=== PATIENT | female | born 1980 | race Caucasian/White ===

== ENCOUNTER → 2019-05-23 | Outpatient (CLI) | payer OTHER ==
[~2019-05-23] MED LIST: ACET500 PO; AMLO5 PO; AMOCLA875 PO; AMOX500 PO; ASCO500 PO; ATOR20 PO; AZIT250 PO; Antivert25 MG PO; Augmentin 875-1 EACH PO; B Complex #11 EACH PO; BLACK SEED OIL PO; BUPR150ER PO; BUPR75 PO; BUSP15 PO; Bactrim Ds Tab1 EACH PO; Bupropion Xl150 MG PO; Buspirone HCl30 MG PO; C-10001000 M1 PO; CARI350 PO; CENTRUM COMPLE1 EACH PO; CEPH500 PO; CHOL10002 PO; CIPR500 PO; CITA20 PO; CLON1 PO; CODACE30 PO; CODGUAEL PO; CYCL10 PO; Cleocin HCl300 MG PO; Clonazepam1 MG PO; DOCU100 PO; EPIPEN 2-P0.3 MG/0.3 IM; ESOM20 PO; ESTNORT PO; FAMO40 PO; GUAIFENESIN1200 MG PO; HYDACE5 PO; HYDACE5325 PO; Hair, Skin & N1 EACH PO; IBUP200 PO; IBUP800 PO; Inositol500 MG PO; MELO7.5 PO; METF500 PO; NAPR500 PO; NAPR550 PO; Naprosyn500 MG PO; Norco 10-325 T1 EACH PO; Norco 5-325 Ta1 EACH PO; OMEP20ER PO; OMEPRAZOLE MAGN20 MG PO; OXYACE5T PO; PARO20 PO; PARO30 PO; POTASSIUM GLUC500 MG PO; POTASSIUM99 MG PO; PRESTIQ; PROM25 PO; PSEU120ER PO; PYRI100 PO; Pepcid40 MG PO; Percocet 5-3251 EACH PO; RXCEPH500 PO; RXCODGUASY PO; RXCYCL10 PO; RXHYDACE PO; RXNAPNA550 PO; RXTRAM50 PO; Robaxin500 MG PO; SUCR1 PO; SULTRIDS PO; TRAM50 PO; Ultram50 MG PO; VITAMIN B12-FO1 EACH PO; VITAMIN D32000 UNIT PO; Vitamin D2000 UNIT PO; ZESTORETIC 20-121 EA; ZESTORETIC 20-121 EA PO
[2019-05-28 16:07] LABS: HPV 16 Negative (Negative); HPV 18 Negative (Negative); HPV OTHER HR TYPES Negative (Negative)
== END | disposition home or self-care (01) ==
LOC: LAB SHORT 11:30 → LAB 11:30
PROVIDERS: Obstetrics & Gynecology
DX: Z01.419 Encounter for gynecological examination (general) (routine) without abnormal findings (principal)
CPT/HCPCS: 87624; G0123

== ENCOUNTER 2019-07-01 05:44 | Day surgery (SDC) | payer OTHER ==
[~2019-07-01] VITALS: Ht 180.3 cm; Wt 111.6 kg
[~2019-07-01 05:44] MED LIST changes: -BLACK SEED OIL PO; -DOCU100 PO
--- NOTE | 2019-07-01 06:40 | NUR ---
Ambulatory in Day Surgery History, Chart, Medications and Allergies reviewed before start of procedure.Lungs clear T/O to Auscultation. Patient reports completing Chlorhexadine shower X2 prior to admission to hospital.Surgical site prepped with 2% Chlorhexidine cloth wipe.HCG NEGATIVE.
--- NOTE | 2019-07-01 12:48 | NUR ---
OBTAINED PERMISSION ON 07/01/19 THE RN INTERNSHIP OBTAINED VERBAL PERMISSION FROM THE PATIENT TO CARE FOR HER ON 07/02/19.
[2019-07-01] MEDS ORDERED: BLACK SEED OIL PO (13:03)
--- NOTE | 2019-07-01 16:22 | NUR ---
SHIFT SUMMARY S/P LAVH AND PT DOING WELL. POST OP VSS. 1 NORCO + TORADOL + KPAD TO ABD FOR PAIN MANAGEMENT. IVF INFUSING PER ORDERS. CARLOS REG DIET WITH NO COMPLAINTS OF N/V. LAP SITES TO ABD ARE CDI. FARR PATENT DRAINING YELLOW URINE. SCANT VAGINAL BLEEDING TO ALICE PAD. PT AMBULATED HALLWAY WITH MININAL STANDBY ASSIST. USES CALL LIGHT APPROPRIATELY.
--- NOTE | 2019-07-02 05:41 | NUR ---
SHIFT SUMMARY: MARLY RESTED INTERMITTENTLY DURING THE NIGHT. SHE IS ABLE TO MAKE HER NEEDS KNOWN. SHE IS POD1 TODAY FOR A LAP ASSISTED VAGINAL HYSTERECTOMY. FARR IN PLACE DRAINING CLEAR, YELLOW URINE. LAP SITES X 3 ON ABDOMEN DRY AND INTACT. SHE REPORTS TOLERABLE PAIN CONTROL WITH THE USE OF TORADOL AND NORCO. IV TO RIGHT HAND PATENT. SHE IS TOLERATING PO INTAKE WELL, DENIES ANY N/V. SHE IS INDEPENDENT TO THE BATHROOM AND HAS WALKED THE SMITH X 2 THIS SHIFT. SHE IS LYING COMFORTABLY IN BED WITH HER CALL LIGHT IN REACH. SHE DOES USE HER CALL LIGHT APPROPRIATELY.
--- NOTE | 2019-07-02 06:03 | NUR ---
FARR CATHETER REMOVED AT 0600.
[2019-07-02 06:17] LABS: BASOPHILS ABSOLUTE AUTO 0.02 K/mm3 (0.00-0.23); BASOPHILS PERCENT AUTO 0 % (0-2); EOSINOPHILS PERCENT AUTO 0 % (0-6); Hematocrit 31.4 % (33.0-51.0); IMMATURE GRAN ABSOLUTE AUTO 0.18 K/mm3 (0.00-0.10); IMMATURE GRAN PERCENT AUTO 1 % (0-1); LYMPHOCYTES PERCENT AUTO 8 % (21-46); MONOCYTES PERCENT AUTO 5 % (4-13); Mean Corpuscular HGB 28.5 pg (26.0-34.0); Mean Corpuscular HGB Conc 31.8 g/dL (31.5-36.5); Mean Corpuscular Volume 90 fL (80-100); Mean Platelet Volume 8.1 fL (9.1-12.4); NEUTROPHILS PERCENT AUTO 86 % (41-73); Platelet Count 297 K/mm3 (150-400); RDW Coefficient Variation 14.1 % (11.7-14.2); RDW Standard Deviation 45.4 fL (35.1-46.3); Red Blood Cell Count 3.51 M/mm3 (3.80-5.20)
[2019-07-02] MEDS ORDERED: Norco 5-325 Ta1 EACH PO (09:59)
[2019-07-02] MEDS ORDERED: DOCU100 PO (09:59)
[2019-07-02] MEDS ORDERED: IBUP800 PO (10:00)
--- NOTE | 2019-07-02 10:26 | NUR ---
DISCHARGE PT EDUCATED ON AND RECEIVED PRINTED DC INSTRUCTIONS AND VERB AN UNDERSTANDING. HARD RX FOR NORCO + IBUPROFEN + COLACE GIVEN TO PT. MEDS FAXED OVER TO [facility] IN [place]. IV DC'D. PT VOIDING SPONTANEOUSLY. PT LEFT WITH ALL PERSONAL BELONGINGS.
== END 2019-07-02 10:32 | disposition home or self-care (01) ==
LOC: ORSCMMR 05:44 → ORD 07:30 → ORSCMMR 07:30 → SURS 12:04 → ORSCMMR 07-02 10:32
PROVIDERS: Obstetrics & Gynecology
PROC: 0UT7FZZ Resection of Bilateral Fallopian Tubes, Via Natural or Artificial Opening With Percutaneous Endoscopic Assistance (ICD-10-PCS; principal; 2019-07-01 07:30)
PROC: 0UT9FZZ Resection of Uterus, Via Natural or Artificial Opening With Percutaneous Endoscopic Assistance (ICD-10-PCS; principal; 2019-07-01 07:30)
DX: N92.0 Excessive and frequent menstruation with regular cycle (principal); E28.2 Polycystic ovarian syndrome; R10.2 Pelvic and perineal pain; N94.6 Dysmenorrhea, unspecified; I10 Essential (primary) hypertension; E78.5 Hyperlipidemia, unspecified; G47.33 Obstructive sleep apnea (adult) (pediatric); K21.9 Gastro-esophageal reflux disease without esophagitis; F17.210 Nicotine dependence, cigarettes, uncomplicated; Z79.899 Other long term (current) drug therapy
CPT/HCPCS: 36415; 82947; 85025; 88307; A9270; A9270-GY; J0690; J1100; J1885; J2250; J2405; J2704; J2710; J3010; J7120

== ENCOUNTER → 2020-02-12 | Outpatient (CLI) | payer OTHER ==
[~2020-02-12] MED LIST changes: +BLACK SEED OIL PO; +DOCU100 PO
== END | disposition home or self-care (01) ==
LOC: LAB SHORT 15:20 → LAB 15:20
DX: R21 Rash and other nonspecific skin eruption (principal)
CPT/HCPCS: 87252; 87254

== ENCOUNTER 2021-05-17 18:59 | Emergency (ER) | payer OTHER ==
[~2021-05-17] VITALS: Ht 180.3 cm; Wt 108.9 kg
[~2021-05-17 18:59] MED LIST changes: +LIPITOR80 MG PO; +PAXIL40 M1 PO
[2021-05-18] MEDS ORDERED: IBUP600 PO (01:59)
== END 2021-05-18 02:05 | disposition home or self-care (01) ==
LOC: ER 18:59
DX: S32.10XA Unspecified fracture of sacrum, initial encounter for closed fracture (principal); I10 Essential (primary) hypertension; E11.9 Type 2 diabetes mellitus without complications; Z88.1 Allergy status to other antibiotic agents; Z88.2 Allergy status to sulfonamides; Z79.899 Other long term (current) drug therapy; W01.0XXA Fall on same level from slipping, tripping and stumbling without subsequent striking against object, initial encounter
CPT/HCPCS: 72100; 72192; 72220; 99284-25; A9270

== ENCOUNTER 2021-06-02 13:39 | Emergency (ER) | payer OTHER ==
[~2021-06-02] VITALS: Ht 180.3 cm; Wt 108.9 kg
[~2021-06-02 13:39] MED LIST changes: +IBUP600 PO
== END 2021-06-02 19:00 | disposition home or self-care (01) ==
LOC: ER 13:39
DX: S32.10XA Unspecified fracture of sacrum, initial encounter for closed fracture (principal); R20.2 Paresthesia of skin; W10.9XXA Fall (on) (from) unspecified stairs and steps, initial encounter; Z88.0 Allergy status to penicillin; Z88.1 Allergy status to other antibiotic agents; Z88.7 Allergy status to serum and vaccine; Z88.2 Allergy status to sulfonamides; Z91.040 Latex allergy status; Z88.8 Allergy status to other drugs, medicaments and biological substances; Z79.899 Other long term (current) drug therapy; Z79.84 Long term (current) use of oral hypoglycemic drugs; I10 Essential (primary) hypertension; E11.9 Type 2 diabetes mellitus without complications; F17.210 Nicotine dependence, cigarettes, uncomplicated
CPT/HCPCS: 72148; 72220; 99284-25

== ENCOUNTER 2021-08-03 15:08 | Emergency (ER) | payer OTHER ==
[~2021-08-03] VITALS: Ht 180.3 cm; Wt 104.3 kg
[2021-08-03] MEDS ORDERED: Voltaren100 GM TOP (19:57)
[2021-08-03] MEDS ORDERED: OXAYDO5 M1 PO ×2 (19:57→20:00)
[2021-08-03] MEDS ORDERED: NAPR500 PO (19:57)
[2021-08-03] MEDS ORDERED: GABA300 PO (19:57)
[2021-08-03] MEDS ORDERED: METPRE4DP PO (19:57)
== END 2021-08-03 20:34 | disposition home or self-care (01) ==
LOC: ER 15:08
DX: G62.89 Other specified polyneuropathies (principal); S32.10XD Unspecified fracture of sacrum, subsequent encounter for fracture with routine healing; I10 Essential (primary) hypertension; E11.9 Type 2 diabetes mellitus without complications; F17.210 Nicotine dependence, cigarettes, uncomplicated; Z79.899 Other long term (current) drug therapy; Z88.0 Allergy status to penicillin; Z88.2 Allergy status to sulfonamides; X58.XXXD Exposure to other specified factors, subsequent encounter
CPT/HCPCS: 51798; 96372; 99284-25; A9270; J1885; J7512

== ENCOUNTER → 2022-06-14 | Outpatient (CLI) | payer OTHER ==
[~2022-06-14] MED LIST changes: +GABA300 PO; +METPRE4DP PO; +OXAYDO5 M1 PO; +Voltaren100 GM TOP
[2022-06-16 14:10] LABS: CHLAMYDIA BY NAA Negative (Negative); GONOCOCCUS BY NAA Negative (Negative); TRICH VAG BY NAA Negative (Negative)
== END | disposition home or self-care (01) ==
LOC: LAB 14:04 → LAB SHORT 14:04
PROVIDERS: Family Medicine
DX: Z11.59 Encounter for screening for other viral diseases (principal)
CPT/HCPCS: 87491; 87591; 87661

== ENCOUNTER → 2022-10-06 | Outpatient (CLI) | payer OTHER | LOC: LAB 18:30 → LAB SHORT 18:30 | DX: N39.0 Urinary tract infection, site not specified (principal) | CPT/HCPCS: 87077; 87086; 87186 ==

== ENCOUNTER 2022-10-21 21:05 | Emergency (ER) | payer OTHER ==
[~2022-10-21] VITALS: Ht 180.3 cm; Wt 104.3 kg
[2022-10-22 00:45] VITALS: BP 148/82
== END 2022-10-22 00:51 | disposition home or self-care (01) ==
LOC: ER 21:05
DX: M79.652 Pain in left thigh (principal); I10 Essential (primary) hypertension; E11.9 Type 2 diabetes mellitus without complications; F17.210 Nicotine dependence, cigarettes, uncomplicated; Z88.0 Allergy status to penicillin; Z88.1 Allergy status to other antibiotic agents; Z88.2 Allergy status to sulfonamides; Z88.7 Allergy status to serum and vaccine; Z91.040 Latex allergy status; Z91.018 Allergy to other foods; Z79.84 Long term (current) use of oral hypoglycemic drugs; Z79.899 Other long term (current) drug therapy
CPT/HCPCS: 99283

== ENCOUNTER → 2022-12-14 | Outpatient (CLI) | payer OTHER ==
[2022-12-15 10:09] LABS: HIV AB/P24 AG SCREEN Non Reactive (Non Reactive)
[2022-12-15 12:01] LABS: Candida species (DNA Probe) Negative (NEGATIVE); G. vaginalis (DNA Probe) Positive (NEGATIVE); T. vaginalis (DNA Probe) Negative (NEGATIVE)
[2022-12-17 00:09] LABS: CHLAMYDIA BY NAA Negative (Negative); GONOCOCCUS BY NAA Negative (Negative); TRICH VAG BY NAA Negative (Negative)
== END ==
LOC: LAB 14:05 → LAB SHORT 14:05
PROVIDERS: Family Medicine
DX: Z11.3 Encounter for screening for infections with a predominantly sexual mode of transmission (principal)
CPT/HCPCS: 86592; 86695; 86696; 86803; 87389; 87480; 87491; 87510; 87591; 87660; 87661

== ENCOUNTER 2023-01-31 23:05 | Emergency (ER) | payer OTHER ==
[~2023-01-31] VITALS: Ht 170.2 cm; Wt 97.5 kg
[2023-01-31 23:12] VITALS: BP 144/94
[2023-01-31] MEDS ORDERED: Cleocin HCl150 MG PO (23:32)
[2023-01-31] MEDS ORDERED: Vibramycin100 MG PO (23:32)
== END 2023-01-31 23:52 | disposition home or self-care (01) ==
LOC: ER 23:05
DX: S61.051A Open bite of right thumb without damage to nail, initial encounter (principal); S61.251A Open bite of left index finger without damage to nail, initial encounter; W55.01XA Bitten by cat, initial encounter; Z23 Encounter for immunization; Z88.0 Allergy status to penicillin; Z88.1 Allergy status to other antibiotic agents; Z88.2 Allergy status to sulfonamides; Z88.7 Allergy status to serum and vaccine; Z91.040 Latex allergy status; Z79.899 Other long term (current) drug therapy; Z79.84 Long term (current) use of oral hypoglycemic drugs; Z79.52 Long term (current) use of systemic steroids; I10 Essential (primary) hypertension; E11.9 Type 2 diabetes mellitus without complications; F17.210 Nicotine dependence, cigarettes, uncomplicated
CPT/HCPCS: 90471; 90714; 90715; 99283-25; A9270

== ENCOUNTER → 2023-09-12 | Outpatient (CLI) | payer OTHER ==
[~2023-09-12] MED LIST changes: +Cleocin HCl150 MG PO; +Vibramycin100 MG PO
[2023-09-12 18:44] LABS: Creatinine, Urine Random 86.5 mg/dL (27.00-270.00); Microalb/Creat Ratio UR, Rand 6.578 mg/g (0.000-30.000); Microalbumin, Random Urine 5.69 mg/L (0.000-20.000)
[2023-09-12 18:54] LABS: Albumin/Globulin Ratio 1.3 (0.8-1.8); Bilirubin, Total 0.2 mg/dL (0.1-1.0); Bun/Creatinine Ratio 16.7 (12.0-20.0); Calcium, Blood 9.7 mg/dL (8.5-10.1); Creatinine, Blood 0.9 mg/dL (0.40-1.00); Globulin, Blood 3.1 g/dL (2.2-4.0); Total Protein, Blood 7.1 g/dL (6.4-8.2)
[2023-09-15 15:16] LABS: CHROMOGRANIN IN SERUM 391 ng/mL (0-187)
== END | disposition home or self-care (01) ==
LOC: LAB 15:00 → LAB SHORT 15:00
PROVIDERS: Family Medicine
DX: H53.2 Diplopia (principal); H53.9 Unspecified visual disturbance; R09.89 Other specified symptoms and signs involving the circulatory and respiratory systems; R23.2 Flushing; R51.9 Headache, unspecified; R82.994 Hypercalciuria
CPT/HCPCS: 80053; 82043; 82306; 82570; 82652; 86316

== ENCOUNTER 2024-02-21 07:25 | Day surgery (SDC) | payer OTHER | END 2024-02-21 22:54 | disposition home or self-care (01) | LOC: MHTC 07:25 → CT 07:25 | DX: I25.10 Atherosclerotic heart disease of native coronary artery without angina pectoris (principal); Z88.8 Allergy status to other drugs, medicaments and biological substances; Z91.040 Latex allergy status | CPT/HCPCS: 75574; Q9967 ==

== ENCOUNTER → 2024-09-24 | Outpatient (CLI) | payer OTHER | END | disposition home or self-care (01) | LOC: LAB 16:55 → LAB SHORT 16:55 | DX: N39.0 Urinary tract infection, site not specified (principal) | CPT/HCPCS: 87077; 87086; 87186 ==

== ENCOUNTER 2025-01-28 18:14 | Emergency (ER) | payer OTHER ==
[~2025-01-28] VITALS: Ht 180.3 cm; Wt 108.9 kg
[2025-01-28] MEDS ORDERED: OXYC10ER PO (20:51)
[2025-01-28] MEDS ORDERED: Robaxin750 MG PO (20:52)
[2025-01-28] MEDS ORDERED: ONDA4ODT MM (20:53)
[2025-01-28 21:12] LABS: BASOPHILS ABSOLUTE AUTO 0.06 K/mm3 (0.00-0.23); BASOPHILS PERCENT AUTO 1 % (0-2); EOSINOPHILS ABSOLUTE AUTO 0.37 K/mm3 (0.00-0.68); EOSINOPHILS PERCENT AUTO 4 % (0-6); Hematocrit 42.8 % (33.0-51.0); Hemoglobin 14.0 g/dL (11.5-16.0); IMMATURE GRAN ABSOLUTE AUTO 0.14 K/mm3 (0.00-0.10); IMMATURE GRAN PERCENT AUTO 1 % (0-1); LYMPHOCYTES ABSOLUTE AUTO 3.17 K/mm3 (0.84-5.20); LYMPHOCYTES PERCENT AUTO 31 % (21-46); MONOCYTES ABSOLUTE AUTO 0.92 K/mm3 (0.16-1.47); MONOCYTES PERCENT AUTO 9 % (4-13); Mean Corpuscular HGB Conc 32.7 g/dL (31.5-36.5); Mean Corpuscular Volume 86 fL (80-100); NEUTROPHILS ABSOLUTE AUTO 5.62 K/mm3 (1.96-9.15); NEUTROPHILS PERCENT AUTO 55 % (41-73); NRBC ABSOLUTE 0.00 K/mm3 (0.00-0.02); NRBC Auto 0.0 /100 WBC (0.0-0.2); Platelet Count 333 K/mm3 (150-400); RDW Coefficient Variation 13.3 % (11.7-14.2); RDW Standard Deviation 41.6 fL (35.1-46.3)
[2025-01-28 21:24] LABS: Alanine Aminotransfer (ALT/SGP 30.0 U/L (12-78); Albumin, Blood 3.4 g/dL (3.4-5.0); Albumin/Globulin Ratio 0.8 (0.8-1.8); Anion Gap 9.0 mmol/L (3-11); Aspartate Aminotrans (AST/SGOT 19.0 U/L (12-37); Bilirubin, Total 0.2 mg/dL (0.1-1.0); Blood Urea Nitrogen 13.0 mg/dL (8-24); CO2, Blood 29.0 mmol/L (21-32); Calcium, Blood 9.3 mg/dL (8.5-10.1); Chloride, Blood 100.0 mmol/L (98-108); Creatinine, Blood 0.99 mg/dL (0.40-1.00); Globulin, Blood 4.0 g/dL (2.2-4.0); Glucose, Blood 154.0 mg/dL (70-99); Potassium, Blood 3.7 mmol/L (3.5-5.5); Sodium, Blood 134.0 mmol/L (136-145); Total Protein, Blood 7.4 g/dL (6.4-8.2)
[2025-01-28 22:46] VITALS: BP 140/99
== END 2025-01-28 22:46 | disposition home or self-care (01) ==
LOC: ER 18:14
PROVIDERS: Emergency Medicine
DX: L76.32 Postprocedural hematoma of skin and subcutaneous tissue following other procedure (principal); I10 Essential (primary) hypertension; E11.9 Type 2 diabetes mellitus without complications; F17.210 Nicotine dependence, cigarettes, uncomplicated; Z88.2 Allergy status to sulfonamides; Z88.7 Allergy status to serum and vaccine; Z79.899 Other long term (current) drug therapy; Z79.84 Long term (current) use of oral hypoglycemic drugs
CPT/HCPCS: 72125; 80053; 85025; 99284-25

== ENCOUNTER → 2025-03-17 | Outpatient (CLI) | payer MEDICARE, OTHER ==
[~2025-03-17] MED LIST changes: +ONDA4ODT MM; +OXYC10ER PO; +Robaxin750 MG PO
[2025-03-17 17:52] LABS: Hematocrit 43.5 % (33.0-51.0); Hemoglobin 14.2 g/dL (11.5-16.0); Mean Corpuscular HGB Conc 32.6 g/dL (31.5-36.5); Mean Corpuscular Volume 84 fL (80-100); NRBC ABSOLUTE 0.00 K/mm3 (0.00-0.02); NRBC Auto 0.0 /100 WBC (0.0-0.2); Platelet Count 290 K/mm3 (150-400); RDW Coefficient Variation 13.2 % (11.7-14.2); RDW Standard Deviation 40.8 fL (35.1-46.3)
[2025-03-17 18:26] LABS: Alanine Aminotransfer (ALT/SGP 40 U/L (12-78); Albumin, Blood 3.9 g/dL (3.4-5.0); Albumin/Globulin Ratio 1.1 (0.8-1.8); Anion Gap 9 mmol/L (3-11); Aspartate Aminotrans (AST/SGOT 25 U/L (12-37); Bilirubin, Total 0.4 mg/dL (0.1-1.0); Blood Urea Nitrogen 9 mg/dL (8-24); CHOL/HDL RATIO 5.8; CO2, Blood 26 mmol/L (21-32); Calcium, Blood 9.6 mg/dL (8.5-10.1); Chloride, Blood 103 mmol/L (98-108); Cholesterol 225 mg/dL (50-200); Creatinine, Blood 0.82 mg/dL (0.40-1.00); Globulin, Blood 3.5 g/dL (2.2-4.0); Glucose, Blood 122 mg/dL (70-99); HDL Cholesterol 39 mg/dL (>39); LDL/HDL RATIO Unable to Calculate; Low Density Lipoprotein Chol Unable to Calculate mg/dL (0-110); Potassium, Blood 3.9 mmol/L (3.5-5.5); Sodium, Blood 134 mmol/L (136-145); Thyroid Stimulating Hormone 1.040 uIU/mL (0.360-4.800); Total Protein, Blood 7.4 g/dL (6.4-8.2); Triglycerides 456 mg/dL (30-160); Very Low Density Lipoprot Chol Unable to Calculate mg/dL (6-32)
== END ==
LOC: LAB SHORT 11:35 → LAB 11:35
DX: R32 Unspecified urinary incontinence (principal); E11.65 Type 2 diabetes mellitus with hyperglycemia; G62.9 Polyneuropathy, unspecified
CPT/HCPCS: 80053; 80061; 83036; 84443; 85027

== ENCOUNTER → 2025-03-17 | Outpatient (CLI) | payer MEDICARE, OTHER ==
[2025-03-17 19:11] LABS: Bilirubin, Urine Neg (Neg); Color, Urine Yellow (P-Yellow); Glucose Qualitative, Urine 4+ (Neg); Ketones, Urine Neg (Neg); Leukocyte Esterase, Urine Neg (Neg); Protein, Urine Neg (Neg); Specific Gravity, Urine 1.020 (1.003-1.022); Urobilinogen, Urine NORM (Normal)
== END ==
LOC: LAB SHORT 10:00 → LAB 10:00
DX: R32 Unspecified urinary incontinence (principal); E11.65 Type 2 diabetes mellitus with hyperglycemia; G62.9 Polyneuropathy, unspecified
CPT/HCPCS: 80053; 80061; 81003; 82043; 83036; 84443; 85027

== ENCOUNTER → 2025-04-17 | Outpatient (CLI) | payer MEDICARE, OTHER | LOC: LAB SHORT 14:03 → LAB 14:03 | DX: R32 Unspecified urinary incontinence (principal) | CPT/HCPCS: 82043; 87086 ==